=== PATIENT | female | born 1945 | race Caucasian/White ===

== ENCOUNTER 2019-12-03 09:46 | Inpatient (IN) ==
[2019-12-03 10:18] LABS: BASO# 0.06 X1000 (0.0-0.2); BASO% 0.7 % (0.0-0.8); EOS# 0.16 X1000 (0.0-0.7); EOS% 1.8 % (0.0-10.0); HEMATOCRIT 40.6 % (37.0-47.0); HEMOGLOBIN 13.1 g/dL (12.0-16.0); IMM GRAN# 0.02 X1000 (0.0-0.04); IMM GRAN% 0.2 % (0.0-0.5); LYMPH# 1.79 X1000 (1.2-3.4); LYMPH% 19.6 % (20.5-51.1); MCH 31.2 PG (27-31); MCHC 32.3 g/dL (33-37); MCV 96.7 FL (81-99); MONO# 0.84 X1000 (0.11-0.59); MONO% 9.2 % (1.7-9.3); NEUT# 6.26 X1000 (1.4-6.5); NEUT% 68.5 % (42.2-75.2); PLT 255 X1000 (130-400); RDW 13.3 % (11.5-14.5); WBC 9.13 X1000 (4.8-10.8)
[2019-12-03 10:27] LABS: INR 1.16
[2019-12-03 10:28] LABS: PTT 34.2 Seconds (22.3-41.8)
[2019-12-03 10:35] LABS: ALB/GLOB RATIO 1.7; ALBUMIN 3.8 g/dL (3.5-5.0); CALCIUM 8.8 mg/dL (8.8-10.2); CREATININE 1.1 mg/dL (0.5-0.9); POTASSIUM 4.4 mmol/L (3.5-5.1); TOTAL BILIRUBIN 0.43 mg/dL (0.20-1.00); TOTAL PROTEIN 6.1 g/dL (6.3-8.3)
--- NOTE | 2019-12-03 10:45 | Diag Imaging Result Doc PS360 ---
EXAM: CHEST-1 VIEW HISTORY: news screening TECHNIQUE: Single view COMPARISON: 07/24/2019 FINDINGS: The lungs are well expanded. The right hemidiaphragm is elevated similar to the prior exam. The heart is mildly prominent. The vessels are not distended. There are no infiltrates. No effusion identified. IMPRESSION: Stable chest Electronically signed by Issac Velasquez 12/03/2019 10:43 AM
[2019-12-03] MEDS ORDERED: CARDIZEM IV ONE (11:01)
--- NOTE | 2019-12-03 11:13 | PROVIDER DOCUMENTATION ---
HPI-Cardiac General - General Chief Complaint: Shortness of Breath Stated Complaint: SOB Time Seen by Provider: 12/03/19 10:00 Source: patient Allergies/Adverse Reactions: Patient Allergies Allergy/AdvReac Type Severity Reaction Status Date / Time codeine Allergy NAUSEA/VOMI Verified 06/27/17 08:08 TING hydroxyzine [From Vistaril] Allergy SWELLING Verified 06/27/17 08:08 Sulfa (Sulfonamide Allergy HIVES Verified 06/27/17 08:08 Antibiotics) Home Medications: Home Medication List Medication Instructions Recorded Confirmed Last Taken Type Aspirin 81 mg PO DAILY 06/27/17 06/28/17 06/20/17 History 81 Atorvastatin Calcium [Lipitor] 40 mg PO DAILY 06/27/17 06/28/17 06/27/17 21:00 History 40 Azelastine/Fluticasone [Dymista 2 spray NS BID 06/27/17 06/28/17 06/26/17 History Nasal [place]] 2 Carvedilol [Coreg] 12.5 mg PO BID 06/27/17 06/28/17 06/28/17 08:00 History 12.5 Estradiol 0.05 mg/24 Hr Patch 1 each TD Q7D 06/27/17 06/28/17 06/21/17 History [Climara 0.05 mg/24 Hr Patch] 1 Gabapentin 300 mg PO BID 06/27/17 06/28/17 06/27/17 21:00 History 300 Gemfibrozil [Lopid] 600 mg PO BID 06/27/17 06/28/17 06/27/17 21:00 History 60 Glyburide/Metformin HCl 2 each PO QAM 06/27/17 06/28/17 06/27/17 08:00 History [Glucovance 2.5/500 mg Tablet] 2 Insulin Glargine,Hum.rec.anlog 50 unit SQ HS 06/27/17 06/28/17 06/27/17 22:00 History [Lantus Solostar] 50 Lisinopril 40 mg PO DAILY 06/27/17 06/28/17 06/27/17 08:00 History 40 Montelukast Sodium [Singulair] 10 mg PO DAILY 06/27/17 06/28/17 06/27/17 22:00 History 10 Multivitamins/Minerals [Centrum 1 each PO DAILY 06/27/17 06/28/17 06/27/17 08:00 History Silver] 1 Nifedipine [Procardia Xl] 60 mg PO DAILY 06/27/17 06/28/17 06/28/17 08:00 History 60 Pantoprazole [Protonix 40 mg PO DAILY@0700 06/27/17 06/28/17 06/27/17 08:00 History [Nonformulary]] 40 Potassium Chloride 10 meq PO DAILY 06/27/17 06/28/17 06/27/17 08:00 History 10 Prednisone 10 mg PO EVERY OTHER DAY 06/27/17 06/28/17 06/26/17 History 10 Torsemide [Demadex] 20 mg PO DAILY 06/27/17 06/28/17 06/26/17 History 20 Vitamin E 400 unit PO DAILY 06/27/17 06/28/17 06/27/17 08:00 History 400 Albuterol Sulfate [Proair 90 mcg INHALATION 4XDAY PRN PRN #1 07/24/19 Unknown Rx Digihaler] aer.pw.bas Cefditoren Pivoxil 400 mg PO BID #20 tab 07/24/19 Unknown Rx - History of Present Illness-Cardiac Nature of Presenting Problem: [id number] comes in with c/o sob with exertion that has been increasing for the past month patient states that she is unable to walk more than a few feet without having to sit and rest. Patient states she also has a pain to the left side with breathing. Patient states she was in the ER greater than 3 weeks ago and was diagnosed with bronchitis. Patient states that she does have a PMH of CHF and does have increased edema to legs. Patient is nontoxic in appearance. Location: reports: back Quality of Pain: reports: dull Severity in ED: moderate Onset/Duration: other (3 weeks) Timing: getting worse Context/Activities at Onset: reports: none Modifying Factors: improves with: nothing History of arrythmia: reports: none (patient currently in AFib RVR) Recent use of:: reports: no stimulants Nitro Today/Relief: reports: no nitro taken today Aspirin Treatment Today: reports: 81 mg x 1 (daily asa) Prior Chest Pain/Cardiac Workup: reports: cardiac cath, echocardiography, stress test Associated Symptoms: reports: back pain, fatigue, shortness of breath Similar Symptoms Previously?: No Recently Seen Here or By Another Healthcare Provider: No Review of Systems - Adult - REVIEW OF SYSTEMS - ADULT Constitutional: reports: no symptoms reported. denies: chills, fever Eyes: reports: no symptoms reported Ears, Nose, Mouth & Throat: reports: no symptoms reported. denies: epistaxis, sinus problem Cardiovascular: reports: irregular heart rate. denies: chest pain Respiratory: reports: shortness of breath Gastrointestinal: reports: no symptoms reported. denies: abdominal pain, diarrhea, nausea, vomiting Genitourinary: reports: flank pain. denies: dysuria Musculoskeletal: reports: no symptoms reported Integumentary: reports: no symptoms reported Neurological: reports: no symptoms reported Psychiatric: reports: no symptoms reported Endocrine: reports: no symptoms reported Hematologic/Lymphatic: reports: no symptoms reported Allergic/Immunologic: reports: no symptoms reported All Other Systems: Reviewed and Negative Past History - Adult - PAST MEDICAL HISTORY-ADULT Review of Records: reports: Old Records Reviewed, Nursing Assessment Review, Medications Reviewed, Social history reviewed & non-contributory. Major Childhood Illnesses: reports: denies history Cardiovascular: reports: CAD, CHF, HTN Respiratory: reports: denies history, COPD Gastrointestinal: reports: GERD Obstetrical/Gynecological: reports: denies history Genitourinary: reports: chronic UTI's Musculoskeletal: reports: denies history Neurological: reports: denies history Endocrine/Immune: reports: Diabetes Diabetes Type: Type 2 Other Conditions: reports: denies history - IMMUNIZATION STATUS Childhood Immunizations: See Nurse Assessment Flu Vaccine: See Nurse Assessment - FAMILY HISTORY Family History: reviewed, not pertinent - SOCIAL HISTORY Smoking: denies Substance Use: denies Living Situation: family Physical Exam-General - PHYSICAL EXAM-ADULT Initial Vital Signs Reviewed: Yes - CONSTITUTIONAL General Appearance: appears well, alert, no apparent distress - EYES Eyes: PERRL/EOMI, pink conjunctivae - HEAD, EARS, NOSE, MOUTH & THROAT HENMT: normocephalic/atraumatic, moist mucous membranes, normal ENT inspection - NECK Neck: non-tender, full range of motion, supple - RESPIRATORY Respiratory: chest non-tender, lungs clear, normal breath sounds, no pleuratic chest pain, no respiratory distress, no accessory muscle use - CARDIOVASCULAR Cardiovascular: normal peripheral pulses, no gallop, no JVD, irregularly irregular - GASTROINTESTINAL (ABDOMEN) Abdominal Exam: normal bowel sounds, non tender, soft - LYMPHATIC Lymphatic: no adenopathy - MUSCULOSKELETAL Back Exam: normal inspection, no CVA tenderness Extremity: normal range of motion, normal gait, pedal edema Peripheral Pulses: radial (R): 2+, radial (L): 2+, dorsalis-pedis (R): 2+, dorsalis-pedis (L): 2+ - SKIN Integumentary: normal color, normal turgor, warm/dry - NEUROLOGIC Neurologic: grossly normal - PSYCHIATRIC Psych/Mental Status: normal mood/affect, normal thought content, oriented x 3 - HEART Score HEART Score: History: Slightly Suspicious HEART Score: ECG: Normal HEART Score: Age: > or = 65 Years HEART Score: Risk Factors for Atherosclerotic Disease: > or = 3 Risk Factors or History of Atherosclerotic Disease HEART Score: Troponin: < or = Normal Limit Total HEART Score:: 4 Progress - PLAN OF CARE/RESULTS Progress/Plan/Lab Results: Vital Signs - 8 hr 12/03/19 09:51 12/03/19 11:53 Temperature 97.5 F L Pulse Rate 137 H 117 H Respiratory Rate 20 23 Blood Pressure 171/87 131/99 O2 Sat by Pulse Oximetry 98 95 Laboratory Results - last 24 hr 12/03/19 12/03/19 12/03/19 10:05 10:05 10:05 WBC RBC Hgb Hct MCV MCH MCHC RDW Std Deviation Plt Count MPV Immature Gran % (Auto) Neut % (Auto) Lymph % (Auto) Moody % (Auto) Eos % (Auto) Baso % (Auto) Immature Gran # (Auto) Neut # (Auto) Lymph # (Auto) Moody # (Auto) Eos # (Auto) Baso # (Auto) PT INR PTT (Actin FS) Sodium 140 Potassium 4.4 Chloride 103 Carbon Dioxide 24 L Anion Gap 13 BUN 20 Creatinine 1.1 H Estimated GFR/1.73 m2 48 BUN/Creatinine Ratio 18 Glucose 266 H Calculated Osmolality 291 Calcium 8.8 Total Bilirubin 0.43 AST 14 ALT 10 Alkaline Phosphatase 94 Creatine Kinase 69 Troponin T High Sens 20 H Total Protein 6.1 L Albumin 3.8 Globulin 2.3 Albumin/Globulin Ratio 1.7 Plasma Lactate 1.2 Urine Source Urine Color Urine Turbidity Urine pH Ur Specific [place] Urine Protein Ur Glucose (Stick) Ur Ketones (Stick) Urine Blood Urine Nitrite Urine Bilirubin Urobilinogen Dipstick Urine Leukocytes Urine WBC (Auto) Urine RBC (Auto) U Epithel Cells (Auto) Urine Bacteria (Auto) 12/03/19 12/03/19 12/03/19 10:05 10:05 10:26 WBC 9.13 RBC 4.20 Hgb 13.1 Hct 40.6 MCV 96.7 MCH 31.2 H MCHC 32.3 L RDW Std Deviation 13.3 Plt Count 255 MPV 12.0 H Immature Gran % (Auto) 0.2 Neut % (Auto) 68.5 Lymph % (Auto) 19.6 L Moody % (Auto) 9.2 Eos % (Auto) 1.8 Baso % (Auto) 0.7 Immature Gran # (Auto) 0.02 Neut # (Auto) 6.26 Lymph # (Auto) 1.79 Moody # (Auto) 0.84 H Eos # (Auto) 0.16 Baso # (Auto) 0.06 PT 15.0 INR 1.16 PTT (Actin FS) 34.2 Sodium Potassium Chloride Carbon Dioxide Anion Gap BUN Creatinine Estimated GFR/1.73 m2 BUN/Creatinine Ratio Glucose Calculated Osmolality Calcium Total Bilirubin AST ALT Alkaline Phosphatase Creatine Kinase Troponin T High Sens Total Protein Albumin Globulin Albumin/Globulin Ratio Plasma Lactate Urine Source CATH Urine Color YELLOW Urine Turbidity CLEAR Urine pH 6.0 Ur Specific [place] 1.017 Urine Protein 30 A Ur Glucose (Stick) 500 A Ur Ketones (Stick) NEGATIVE Urine Blood NEGATIVE Urine Nitrite NEGATIVE Urine Bilirubin NEGATIVE Urobilinogen Dipstick NORMAL Urine Leukocytes TRACE A Urine WBC (Auto) 10-20 A Urine RBC (Auto) <10 U Epithel Cells (Auto) <10 Urine Bacteria (Auto) NEGATIVE Orders Category Date Time Status Cardiac Monitoring NOW Care 12/03/19 09:57 Active IV Insertion NOW Care 12/03/19 09:57 Completed NEWS Score >or=5:Order NEWS Bundle S.O. NOW Care 12/03/19 09:56 Active Notify Provider of NEWS Score NOW Care 12/03/19 09:57 Active Diabetic Diet Diet 12/03/19 12:34 Active CHEST-1 VIEW [RAD] Stat Exams 12/03/19 09:57 Completed BLOOD CULTURE [BLDCUL] Stat Lab 12/03/19 10:30 Results BNP [PRO B-NATRIURETIC PEPTIDE] Stat Lab 12/03/19 10:05 Received CBC WITH DIFF [HEME] Stat Lab 12/03/19 10:05 Completed CK PROFILE [SP CHEM] Stat Lab 12/03/19 10:05 Completed COMPREHENSIVE METABOLIC PANEL [CHEM] Stat Lab 12/03/19 10:05 Completed LACTATE, PLASMA [CHEM] Q3H Lab 12/03/19 10:05 Completed PROTIME WITH INR [COAG] Stat Lab 12/03/19 10:05 Completed PTT [COAG] Stat Lab 12/03/19 10:05 Completed TROPONIN T HIGH SENSITIVITY Stat Lab 12/03/19 10:05 Completed URINALYSIS W/POSS RFLX CULT [URINALYSIS] Stat Lab 12/03/19 10:26 Completed Diltiazem 100 mg/Ns [Cardizem 100 mg/Ns] Med 12/03/19 11:15 Active 100 mg in 100 ml IV As Directed mls/hr Diltiazem [Cardizem] Med 12/03/19 11:01 Discontinued 10 mg IV NOW ONE O2 Per Protocol Stat Oth 12/03/19 09:57 Active Patient agrees with POC rendered today. Result Diagrams: 12/03/19 10:05 12/03/19 10:05 - REASSESSMENT Reassessment #1 Time Reassessed: 12:00 Status: improving (patient on cardizem gtt HR 97 afib) - EKG 1 Time of EKG reading by physician:: 10:55 EKG Read and Signed by:: Alton Rocha EKG Interpretation (*Must complete 3 of following elements*): Abnormal Rate: 121 Rhythm: Afib RVR QRS: other (Septal infarct) - XRAY 1 XRAY Study: Chest Impression: See EMR Report (FINDINGS: The lungs are well expanded. The right hemidiaphragm is elevated similar to the prior exam. The heart is mildly prominent. The vessels are not distended. There are no infiltrates. No effusion identified. IMPRESSION: Stable chest Electronically signed by Issac Velasquez 12/03/2019 10:43 AM) - CONSULTS/PCP/HOSPITALIST Notification #1 *Consult/PCP/Hospitalist*: Fozia Luz [employer] for hospitalist. Time Discussed: 12:56 Consult Disposition: Will see in ED, Admit Departure - Departure Date of Disposition Decision: 12/03/19 Time of Disposition Decision: 12:56 DIAGNOSIS: Atrial fibrillation with RVR Dyspnea Qualifiers: Dyspnea type: unspecified Qualified Code(s): R06.00 - Dyspnea, unspecified CHF (congestive heart failure) Qualifiers: Heart failure type: unspecified Heart failure chronicity: unspecified Qualified Code(s): I50.9 - Heart failure, unspecified Disposition: ADMITTED INPATIENT 09 Certified Medical Emergency: Emergent Condition: Fair Referrals and Follow-Ups: Severo Lynch MD [Primary Care Provider] - - Critical Care Note This patient required my direct & personal management of CC.: Yes Total Time (mins): 37 Critical Care Statement: This patient required my direct personal management to treat or rule out processes, the absence of which, could potentiallly result in sudden, clinically significant life or limb threatening deterioration. Attestation - Physician/ GAUTAM Attestation Patient care was provided by Advanced Practice Provider:: Yes Advanced Practice Provider:: Carolyn Ibanez Advanced Practice Provider documentation review:: The Mid-level provider documentation, treatment plan and medical decision making was reviewed by the physician who agrees with all treatment and medical decision making by the MLP. The physician spent face to face time with patient:: Yes Advanced Practice Provider documentation review:: Supervising physician onsite and consulted in the evaluation and care of this patient. The physician did have a face to face encounter with the patient.
[2019-12-03] MEDS: CARDIZEM 100 MG/NS 100 MG/100 ML IVPB IV SCH ×2 (11:48→19:41)
[2019-12-03 12:20] LABS: URINE SOURCE CATH
[2019-12-03 12:24] LABS: BILIRUBIN URINE NEGATIVE (NEGATIVE); BLOOD URINE NEGATIVE (NEGATIVE); COLOR YELLOW; GLUCOSE URINE 500 mg/dL (NEGATIVE); KETONE URINE NEGATIVE (NEGATIVE); LEUKOCYTES URINE TRACE (NEGATIVE); NITRITE URINE NEGATIVE (NEGATIVE); PROTEIN URINE 30 mg/dL (NEGATIVE); SP GRAVITY URINE 1.017; TURBIDITY URINE CLEAR (CLEAR); UROBILINOGEN URINE NORMAL (NORMAL)
[2019-12-03 12:26] LABS: UR EPITHELIAL CELLS <10 /HPF (<10); URINE BACTERIA NEGATIVE /HPF; URINE RBC <10 /HPF (<10)
[2019-12-03] MEDS ORDERED: ZOFRAN IV PRN (14:14)
[2019-12-03] MEDS ORDERED: LASIX IV ONE (14:24)
--- NOTE | 2019-12-03 14:30 | EKG Report ---
Test Performed on : 12/03/2019 10:55:27 AM Test Reason : SOB Blood Pressure : / mmHG Vent. Rate : 121 BPM Atrial Rate : 138 BPM P-R Int : 000 ms QRS Dur : 088 ms QT Int : 308 ms P-R-T Axes : 000 011 020 degrees QTc Int : 437 ms Atrial fibrillation. with rapid ventricular response. Low voltage QRS Septal infarct , age undetermined Abnormal ECG No previous ECGs available Unconfirmed Result
[2019-12-03] MEDS ORDERED: LOVENOX SUBQ SCH (15:45)
--- NOTE | 2019-12-03 16:34 | HISTORY AND PHYSICAL ---
ADDENDUM: The patient was seen and examined by me [id number]. All the laboratory, vital signs, and images were reviewed. The patient presented to the emergency department with the chief complaint of shortness of breath, especially with physical activity, that has been getting worse for the past month. Chest x-ray showed some mild cardiomegaly but no infiltrates. I do not have a previous echocardiogram and I will request one. EKG showed atrial fibrillation with rapid ventricular response. She has been placed on a Cardizem drip and she has been transferred to the PVC unit. On the other hand, her proBNP is elevated at 2010 and TSH is also elevated at 12.5 and actually has been elevated before at 5.2 and 8.2 in 2016 and 2012 respectively. I will go ahead and order at a new TSH and also a T4 because probably this patient needs to be on thyroid medication due to hypothyroidism. I already discussed this with the patient. We will recheck the CBC and CMP in the morning. We will continue checking her troponins. Also, I will put this patient on Lovenox twice a day. She does have lower extremity edema. Apparently, she takes torsemide at home but we need to reconcile her medications. She received a dose of Lasix in the emergency department, so we will monitor for now. Once we have the medications reconciled, we will check on that. Again, she has been placed on a diltiazem drip and Lovenox twice a day. I agree with the rest of the nurse practitioner's assessment and plan. cc: Bradley Galvez MD
[2019-12-03] MEDS: HUMALOG SUBQ SCH ×2 (16:44→20:09)
[2019-12-03 17:16] LABS: ALLEN TEST YES; BLOOD TYPE ARTERIAL; HCO3-(ACT) 24.1 mmoll (20.0-26.0); METHB 0.9 % (0.0-1.5); O2(CT) 18.8 mL/dL (15.0-23.0); O2HB 94.2 % (95.0-99.0); PCO2(98.6) 33 mmHg (35-45); PO2(98.6) 69 mmHg (60-100); SAMPLE BLOOD; SAO2 97.2 % (95.0-100.0); THB 14.2 g/dL (11.5-17.4); pH(98.6) 7.44 (7.35-7.45)
[2019-12-03 17:17] LABS: MODALITY ROOM AIR
--- NOTE | 2019-12-03 18:14 | CARDIOLOGY CONSULTATION ---
DATE: 12/03/2019 CONSULTATION REQUESTED BY: The hospitalist service. REASON FOR THE CONSULTATION: Patient with atrial fibrillation, dyspnea, CHF. HISTORY: Mrs. Hurst is a pleasant 74-year-old woman, female, patient of Dr. Nando Tapia and Severo Lynch, who presented to the emergency room today complaining of at least 3 weeks of progressive exertional dyspnea associated with subtle swelling of her ankles. This symptom started gradually and she noticed it because it became more difficult for her to reach her mailbox from her home back and forth. Upon presentation, they did a chest x-ray that shows that the lungs are well- expanded. Vessels are not distended. There are no infiltrates. She is afebrile. She denies having any fever. She has not been coughing. No expectoration. She denies having chest pain, although she admits that from time to time she gets "abdominal pain" that feels like an intense tightness in the abdomen. She attributes that to some sort of acid reflux history of. Upon presentation, they have given her some furosemide and diltiazem and she has been admitted to the hospital for further management. Her initial electrocardiogram done at 10:55 a.m. shows atrial fibrillation with a heart rate of 121 beats per minute with a questionable septal scar and low voltage. The patient at this time is sitting upright. She is comfortable. She says that the shortness of breath is a little less intense. Of note, her pro BNP level on admission is 2010 pg/mL and that is the highest that she has ever had measured in the past. Previously back in 2016 they checked it and it was 342 and in December 2015 was 193 pg/mL. PAST HISTORY: Significant for hypertension for a number of years, diabetes mellitus type 2. She has a history of sleep apnea syndrome and she has been unable to wear the CPAP device. She is morbidly obese. Her body mass index today is estimated at 49.8, weight is 281 pounds. The last time she saw Dr. Tapia at his office on April 2019 her weight was recorded at 263 pounds with a BMI of 46.7. The patient has had some atrial arrhythmia in the past and she has been kept on a low dose of Coreg for that. Reportedly, she has been diagnosed with congestive heart failure with preserved ejection fraction. Dr. Tapia did a PET myocardial perfusion scan on her back in 2016 that came back normal. The patient has a history of hiatal hernia/acid reflux, history of asthma and history of shingles. SURGICAL HISTORY: She has had previous cholecystectomy, hysterectomy, oophorectomy, appendectomy, breast biopsy. 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 She is . She has 2 sons grown up. She is not a drinker nor a smoker. FAMILY HISTORY: Very positive for coronary heart disease on mother and 2 brothers. HOME MEDICATIONS: Listed at the time of this admission included albuterol inhaler, aspirin, atorvastatin 40 mg at bedtime, carvedilol 12.5 twice a day, estradiol patch 0.05 mg/24 hour every 7 days, gabapentin 300 twice a day, gemfibrozil 600 mg twice a day, glyburide metformin 2.5/500 mg at bedtime and she takes 2 in the morning, insulin glargine 50 units at bedtime, lisinopril 40 mg daily, montelukast 10 mg daily, nifedipine 60 mg daily, potassium 10 mEq daily, torsemide 20 mg daily and vitamin E 400 units daily. ALLERGIES: Positive to codeine, hydroxyzine and sulfa drugs. REVIEW OF SYSTEMS: She is chronically dyspneic, lately has become worse. She never had chest pains or angina pectoris or a diagnosis of such condition. We do not have any previous CT scan of the chest noted. No other positives. She has had a previous endoscopy by Dr. Raymundo. PHYSICAL EXAMINATION: Vital signs: Blood pressure is 151/129, temperature 98 degrees, pulse 120. She is awake, alert, oriented, in no distress. She is sitting upright. HEENT: Unremarkable. Chest: Clear to auscultation and percussion. Heart: Sounds are distant. Irregularly irregular. Abdomen: Morbidly obese. No hepatomegaly noted. Extremities: Showed 2+ edema bilaterally. Neurologic: Nonfocal. Moves 4 extremities. Skin: Shows no rash. Psychiatric: She is in normal mood, not agitated. She seems to be intelligent and answers appropriately. Her insight is also normal. BLOOD WORK: White cell count 9130, hemoglobin 13.1, hematocrit 40.6%. PT/INR normal. Sodium 140, potassium 4.4, BUN 20, creatinine 1.1, glucose 266. TSH 12.53 uIU per mL. IMPRESSION: 1. Patient who presents with increasing dyspnea, probably diastolic heart failure secondary to the development of atrial fibrillation with rapid response. 2. Morbid obesity, body mass index almost close to 50. 3. Sleep apnea syndrome, untreated. 4. Chronic hypertension. 5. Hyperlipidemia. 6. Reported history of "asthma." 7. Reported history of congestive heart failure, diastolic with preserved ejection fraction. RECOMMENDATION: At this time, we will change her medications around. We are going to stop Procardia, put her on Cardizem. Continue low-dose beta abelardo. We will keep her on some sort of diuretic probably spironolactone. We will consider anticoagulation with Eliquis and we will consider JACE cardioversion depending on her clinical course. The patient really needs to pursue management with a sleep clinic because her sleep apnea syndrome probably has a lot to do with the development of atrial fibrillation. We will follow her during this admission. Upon discharge, she will return to the care of Dr. Nando Tapia who knows her very well. cc: Ashvin Garcia MD [facility]
--- NOTE | 2019-12-03 19:38 | HISTORY AND PHYSICAL ---
CHIEF COMPLAINT: Shortness of breath and increasing lower extremity edema. HPI: This is a 74-year-old female with a history of hypertension, diabetes mellitus type 2 and obstructive sleep apnea with noncompliance with medications. She presented to the emergency room complaining of 3 weeks of progressive exertional dyspnea with increasing swelling to her lower extremities. She stated that over this time she has noticed that it took longer to do her activities of daily living due to having to slow down because of the shortness of breath. She stated that during the last 24 to 48 hours she had some left-sided pain that was present with cough and deep breath. She has had pleurisy in the past and she states this felt like that therefore she presented for evaluation. PAST MEDICAL HISTORY: 1. Hypertension. 2. Diabetes mellitus type 2. 3. Sleep apnea syndrome with noncompliance wearing a CPAP device. She states that she attempted to wear this during the sleep study was unable so she never followed up. This was greater than 10 years ago. 4. Morbid obesity. 5. Congestive heart failure. 6. Hiatal hernia with acid reflux. PAST SURGICAL HISTORY: Cholecystectomy, hysterectomy, oophorectomy, appendectomy and breast biopsy. SOCIAL HISTORY: She is . She has children that live close by but that are active in her care. She denies any alcohol or tobacco use. 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 FAMILY HISTORY: Positive for coronary artery disease and all her siblings have hypothyroid. HOME MEDICATIONS: A list will be obtained by the nursing staff and once verified we will review and restart as appropriate. REVIEW OF SYSTEMS: Discussed with patient with pertinent positives stated in the HPI. She denied any syncope or dizziness, any palpitations, a productive cough, any fevers or chills, night sweats, recent weight loss, any nausea, vomiting, diarrhea, constipation, black or bloody vomitus or stools, any hematuria, dysuria, frequency, urgency. PHYSICAL EXAMINATION: GENERAL: This is a 74-year-old female who is sitting up on the side of the bed eating in no distress. VITAL SIGNS: Blood pressure is 131/99 with a heart rate that fluctuates between 106 and 124, respirations are 20, temperature 97.6 degrees oral with O2 saturations 95 to 98%. HEENT: Pupils equal, round, react to light. EOMs are intact sclerae anicteric. Head is normocephalic, atraumatic. Mucous membranes are moist. NECK: Supple with trachea midline. No JVD. CARDIOVASCULAR: Irregularly irregular rate and rhythm. S1 and S2 appreciated. No murmur. PULMONARY: Breath sounds are clear with no increased work of breathing noted. Chest rises falls symmetric respiration. GASTROINTESTINAL: Abdomen large, soft, nontender, nondistended with bowel sounds in all 4 quadrants. EXTREMITIES: She has 2+ pitting edema from about midthigh down bilateral. SKIN: Warm and dry. NEUROLOGIC: She is alert, oriented x3. LABS: WBC is 9.1 with hemoglobin 13.1, hematocrit 40.6 and platelets of 255,000. Sodium 140, potassium 4.4, BUN 20, creatinine 1.1 with a glucose of 266. Troponin was 20. Chest x-ray revealed stable chest, lungs are well expanded. Right hemidiaphragm is elevated similar to July 2019. Heart is mildly prominent. Vessels are not distended. There are no infiltrates, no effusion identified. Blood cultures x2 are pending. Urine culture is pending. ASSESSMENT AND PLAN: 1. Increasing dyspnea. 2. Atrial fibrillation with rapid ventricular response. 3. Morbid obesity with a body mass index 49.8. 4. Sleep apnea syndrome, untreated due to patient's noncompliance. 5. Hypertension. 6. Hyperlipidemia. 7. History of congestive heart failure with preserved ejection fraction. PLAN: 1. The patient will be admitted, placed on telemetry. 2. Consult Cardiology. 3. Update and confirm her home medications and once confirmed we will review and restart as appropriate. 4. Supplemental oxygen as needed. 5. Echocardiogram. 6. Check a TSH. 7. Check CBC and CMP in the morning. 8. Pattern blood glucose with sliding scale insulin. 9. Further treatments pending hospital course. Dictated by TAMERA Larson for Bradley Galvez MD cc: TAMERA Larson MD
[2019-12-03] MEDS: CARDIZEM PO SCH (19:51)
[2019-12-03] MEDS: ALDACTONE PO SCH (20:08)
[2019-12-03] MEDS: LIPITOR PO SCH (20:08)
[2019-12-03] MEDS: ASTELIN NASAL SPRAY NAS SCH (20:08)
[2019-12-03] MEDS: LOPID PO SCH (20:08)
[2019-12-03] MEDS: COREG PO SCH (20:08)
[2019-12-03] MEDS: ELIQUIS PO SCH (20:08)
[2019-12-03] MEDS: FLONASE NAS SCH (20:08)
[2019-12-03] MEDS: MONISTAT-7 VAG CREAM VAG SCH (20:10)
[2019-12-04] MEDS: CARDIZEM PO SCH ×4 (02:47→20:15)
[2019-12-04 05:57] LABS: HEMATOCRIT 36.9 % (37.0-47.0); HEMOGLOBIN 12.2 g/dL (12.0-16.0); MCH 32.2 PG (27-31); MCHC 33.1 g/dL (33-37); MCV 97.4 FL (81-99); MPV 12.2 FL (7.4-10.4); RBC 3.79 XMIL (4.2-5.4); RDW 13.4 % (11.5-14.5); WBC 7.88 X1000 (4.8-10.8)
[2019-12-04] MEDS: HUMALOG SUBQ SCH ×4 (06:07→20:15)
[2019-12-04 06:34] LABS: ALB/GLOB RATIO 1.3; ALBUMIN 3.4 g/dL (3.5-5.0); CALCIUM 8.7 mg/dL (8.8-10.2); CREATININE 1.2 mg/dL (0.5-0.9); POTASSIUM 3.7 mmol/L (3.5-5.1); TOTAL BILIRUBIN 0.46 mg/dL (0.20-1.00); TOTAL PROTEIN 6.1 g/dL (6.3-8.3)
[2019-12-04 06:55] LABS: FREE T4 0.92 ng/dL (0.93-1.70)
[2019-12-04 07:00] LABS: TSH 7.26 uIUmL (0.27-4.20)
--- NOTE | 2019-12-04 08:13 | EKG Report ---
Test Performed on : 12/04/2019 06:48:13 AM Test Reason : atrial fibrillation Blood Pressure : / mmHG Vent. Rate : 078 BPM Atrial Rate : 267 BPM P-R Int : 000 ms QRS Dur : 088 ms QT Int : 414 ms P-R-T Axes : 000 052 -07 degrees QTc Int : 471 ms Atrial fibrillation. Low voltage QRS Nonspecific T wave abnormality Prolonged QT Abnormal ECG When compared with ECG of 03-DEC-2019 10:55, (Unconfirmed) Vent. rate has decreased BY 43 BPM Criteria for Septal infarct are no longer present Confirmed by Medina LOPEZ, Salinas Lopez ([id number]) on 12/04/2019 9:25:37 AM
[2019-12-04] MEDS: FLONASE NAS SCH ×2 (08:26→20:14)
[2019-12-04] MEDS: VITAMIN E PO SCH (08:26)
[2019-12-04] MEDS: SINGULAIR PO SCH (08:26)
[2019-12-04] MEDS: ASTELIN NASAL SPRAY NAS SCH ×2 (08:26→20:14)
[2019-12-04] MEDS: COREG PO SCH ×2 (08:26→20:15)
[2019-12-04] MEDS: ELIQUIS PO SCH ×2 (08:26→20:15)
[2019-12-04] MEDS: ALDACTONE PO SCH ×2 (08:26→20:15)
[2019-12-04] MEDS: ASPIRIN PO SCH (08:26)
[2019-12-04] MEDS: CENTRUM SILVER PO SCH (08:26)
[2019-12-04] MEDS: LOPID PO SCH ×2 (08:26→20:15)
--- NOTE | 2019-12-04 08:29 | CARDIOLOGY PROGRESS NOTE ---
DATE: 12/04/2019 CHIEF COMPLAINT: Shortness of breath, irregular heartbeat. SUBJECTIVE: Mrs. Hurst had a pleasant night. She is not having any pain this morning or any significant dyspnea. She is in no distress. OBJECTIVE: Vital signs: Blood pressure is 130/50, temperature 97.6 degrees, pulse 83, respirations 24. A 12-lead EKG this morning shows atrial fibrillation with controlled rate, low voltage. General: She is awake, sitting upright, in no distress. HEENT: Normal. Chest: Sounds clear to auscultation and percussion. Heart: Sounds are irregularly irregular, distant. I do not hear any gallop or murmur. Abdomen: Quite obese. No hepatomegaly. Extremities: Showed trace ankle edema bilaterally. Neurologic exam: Follows commands, moves all 4 extremities. BLOOD WORK: Sodium 141, potassium 3.7, BUN 20, creatinine 1.2. Her lipid panel, LDL 73, HDL 39 mg/dL, cholesterol 119, triglycerides 120. TSH is 7.26, free T4 is 0.92, free T4 is low, TSH is high. Her chest x-ray yesterday showed no infiltrates. IMPRESSION: 1. Patient who presented with clinical symptoms of congestive heart failure diastolic probably related to the development of atrial fibrillation. 2. Atrial fibrillation of uncertain duration now with controlled rate. 3. Morbid obesity. 4. Sleep apnea syndrome. 5. Hypothyroidism. 6. Hypertension. RECOMMENDATIONS: At this time, we will keep the patient on carvedilol and diltiazem. She has been started on Eliquis for stroke prevention. I put her on spironolactone. We will watch her for a day or two and then we will decide on whether or not to pursue cardioversion. The patient at this time is really back to her normal baseline clinically, she is requesting to be discharged, however, I believe that we ought to watch her for a day or two and then before discharge we should try to restore sinus rhythm. She understands that she needs to follow up with her primary care fiberline supervisor, and also obtain a followup visit with the sleep clinic. cc: Ashvin Garcia MD
--- NOTE | 2019-12-04 11:30 | PROGRESS NOTE ---
DATE: 12/04/2019 SUBJECTIVE: This patient states that she is feeling better compared to admission, she is not complaining of chest pain or shortness of breath at this moment, she is still in atrial fibrillation, but she is not on RVR. Her TSH is high, T4 is low, and she has not been on levothyroxine before, so I will go ahead and put her on treatment, likely this patient has sleep apnea as well. OBJECTIVE: Vital Signs: Temperature 97.6 degrees, pulse 83, respiratory rate 24, blood pressure 130/50, oxygen saturation 98% on room air. HEENT: Head normocephalic. No trauma. PERRLA. Neck: Supple. No JVD. No masses. Central trachea. Chest: Clear to auscultation, some crepitus at the bases, no wheezing, no rales. Cardiovascular: Irregularly irregular rate and rhythm. Abdomen: Soft, nontender, nondistended. No hepatosplenomegaly. Extremities: There is 2-3+ lower extremity edema. No clubbing. No cyanosis. Neurological Examination: The patient is awake, alert. She is oriented x3. No focal deficits. LABORATORY: WBC 7.8, hemoglobin 12.2, hematocrit 36.9, platelets 224,000. Sodium 141, potassium 3.7, chloride 103, bicarbonate 25, BUN 20, creatinine 1.2, glucose 160, calcium 8.7, AST 13, ALT 9, alkaline phosphatase 85, albumin 3.4. TSH 7.2, free T4 0.9. ASSESSMENT AND PLAN: 1. Atrial fibrillation with rapid ventricular response, now rate-controlled but she is still in atrial fibrillation, we will continue following the recommendations of Cardiology Department. Continue with same treatment for now. If she still on atrial fibrillation probably in 1 or 2 day she will be cardioverted. 2. Likely diastolic heart failure exacerbation. She received some Lasix yesterday, but the creatinine increased a little bit. Will monitor for now. She is feeling much better. 3. Morbid obesity, diet and exercise has been discussed. 4. Hypertension, stable. Continue with same management. 5. Hypothyroidism, her thyroid stimulating hormone is high and the T4 level is low. I will go ahead and start this patient on 75 mcg of levothyroxine, I talked to her and she needs to re- evaluate the numbers in 6 weeks or so with her primary care doctor, she seems to understand. 6. Likely sleep apnea, she needs to follow up with a sleep doctor as an outpatient. 7. Dyslipidemia, continue with Lipitor. cc: Bradley Galvez MD
--- NOTE | 2019-12-04 12:50 | ECHO REPORT ---
ORDER DATE: 12/04/2019 INDICATION FOR THE STUDY: Atrial fibrillation, dyspnea. FINDINGS: 1. The right atrium appears enlarged. 2. No significant tricuspid regurgitation identified. 3. The right ventricle appears to have normal systolic function but it is enlarged. 4. No significant pulmonic insufficiency. 5. Severe left atrial enlargement with a volume index of 51. 6. No mitral valve prolapse. Trace mitral regurgitation. 7. Normal LV size, end-diastolic dimension of 5.2 cm. Normal wall thicknesses with a posterior and interventricular septal wall thickness of 1.1 cm each. Normal LV systolic function. The estimated EF appears to be greater than 55%. Wall motion and EF are difficult to evaluate due to the patient's irregular and tachycardic rate. Rates are in the 90s to 120s. The patient appears to be in atrial fibrillation. 8. The aortic valve opens well. No evidence of stenosis or insufficiency. 9. The aorta appears normal in visualized segments. 10. No pericardial effusion seen. cc: MD Esthela Hathaway CRNP
[2019-12-04] MEDS: MONISTAT-7 VAG CREAM VAG SCH (20:13)
[2019-12-04] MEDS: COLACE PO SCH (20:15)
[2019-12-04] MEDS: LIPITOR PO SCH (20:15)
[2019-12-04] MEDS ORDERED: FLEET ENEMA PR ONE (22:18)
[2019-12-05] MEDS: CARDIZEM PO SCH ×4 (02:28→19:54)
[2019-12-05 06:30] LABS: CREATININE 1.4 mg/dL (0.5-0.9); MAGNESIUM 2.1 mg/dL (1.5-2.7)
[2019-12-05] MEDS: SYNTHROID PO SCH (06:30)
[2019-12-05] MEDS: HUMALOG SUBQ SCH ×4 (06:30→20:19)
--- NOTE | 2019-12-05 07:50 | EKG Report ---
Test Performed on : 12/05/2019 07:06:11 AM Test Reason : atrial fibrillation Blood Pressure : / mmHG Vent. Rate : 109 BPM Atrial Rate : 156 BPM P-R Int : 000 ms QRS Dur : 084 ms QT Int : 290 ms P-R-T Axes : 000 009 174 degrees QTc Int : 390 ms Atrial fibrillation. with rapid ventricular response. Low voltage QRS Septal infarct , age undetermined Abnormal ECG When compared with ECG of 04-DEC-2019 06:48, Septal infarct is now present QT has shortened Confirmed by Medina LOPEZ, Salinas Lopez ([id number]) on 12/05/2019 9:49:51 AM
[2019-12-05] MEDS: CENTRUM SILVER PO SCH (08:13)
[2019-12-05] MEDS: SINGULAIR PO SCH (08:13)
[2019-12-05] MEDS: LOPID PO SCH ×2 (08:13→20:20)
[2019-12-05] MEDS: ASPIRIN PO SCH (08:13)
[2019-12-05] MEDS: BETAPACE PO SCH ×2 (08:13→20:20)
[2019-12-05] MEDS: VITAMIN E PO SCH (08:13)
[2019-12-05] MEDS: ALDACTONE PO SCH ×2 (08:13→20:20)
[2019-12-05] MEDS: ELIQUIS PO SCH ×2 (08:13→20:20)
[2019-12-05] MEDS: COLACE PO SCH ×2 (08:13→20:21)
[2019-12-05] MEDS: FLONASE NAS SCH ×2 (08:16→20:19)
[2019-12-05] MEDS: ASTELIN NASAL SPRAY NAS SCH ×2 (08:16→20:19)
--- NOTE | 2019-12-05 10:55 | PROGRESS NOTE ---
DATE: 12/05/2019 SUBJECTIVE: The patient is feeling better. She is still in atrial fibrillation, rate controlled. Her creatinine seems to be getting worse and her insulin is elevated. She is tolerating p.o., so we will go ahead and restart her night insulin. She uses Lantus 50. We will continue to monitor. OBJECTIVE: Vital Signs: Temperature 97.8 degrees, pulse 108, respiratory rate 19, blood pressure 111/82, oxygen saturation 100% on room air. HEENT: Head normocephalic. No trauma. PERRLA. Neck: Supple. No JVD. No masses. Central trachea. Chest: Clear to auscultation. Some crepitus at the bases. No wheezing. No rales. Cardiovascular: Irregularly irregular rate and rhythm. Slightly tachycardic. Abdomen: Soft, nontender, nondistended. No hepatosplenomegaly. Extremities: There is 2+ lower extremity edema. No clubbing. No cyanosis. Neurological Examination: The patient is awake and alert. She is oriented x3. No focal deficits. Laboratory: Sodium 139, potassium 4, chloride 102, bicarbonate 23, BUN 21, creatinine 1.4, glucose 240, calcium 9, magnesium 2.1. ASSESSMENT AND PLAN: 1. Atrial fibrillation with rapid ventricular response, now rate controlled but she is still in atrial fibrillation. We will continue following the recommendations of cardiology department. Continue with the same treatment for now. 2. Likely diastolic heart failure exacerbation. She received some Lasix upon admission. Her creatinine increased a little bit so we will monitor for now. She is feeling better. Cardiology on board. 3. Morbid obesity. Diet and exercise have been discussed. 4. Hypertension, stable. 5. Diabetes. I have placed this patient back on her insulin. Her blood sugar is above 200. 6. Hypothyroidism. Her TSH is high and the T4 level is low. I went ahead and put this patient on some levothyroxine, about 75 mcg by mouth daily. I talked to the patient and she needs to follow this up in 6 weeks. She has never been diagnosed with hypothyroidism. 7. Likely sleep apnea. She needs to follow up with a sleep doctor as an outpatient. This can aggravate her possible diastolic dysfunction and atrial fibrillation. 8. Dyslipidemia. Continue with Lipitor. 9. Acute on chronic kidney disease. We will monitor for now. Her creatinine between 2019 and 2017 has been around 1 to 1.1. Now, it has been between 1 to 1.4. We will monitor. cc: Bradley Galvez MD
--- NOTE | 2019-12-05 11:13 | CARDIOLOGY PROGRESS NOTE ---
DATE: 12/05/2019 CHIEF COMPLAINT: Shortness of breath, irregular heartbeat. SUBJECTIVE: Mrs. Hurst remains in atrial fibrillation. Heart rate fluctuates anywhere from the low 60s to the low 100s. She denies having chest pain. She is sitting upright eating her breakfast. OBJECTIVE: Vital signs: Temperature 97.6 degrees, pulse 108, respirations 19, blood pressure 111/82. General: She is obese, alert, in no distress. HEENT: Unremarkable. Chest: Sounds clear to auscultation and percussion. Heart: Sounds are distant, irregularly irregular. Abdomen: Obese. Extremities: Showed trace edema. Neurologic exam: Follows commands, moves all 4 extremities. BLOOD WORK: From today, sodium is 139, potassium 4.0, BUN 21, creatinine 1.4. Her echocardiogram from the showed ejection fraction of 55%. EKG today shows atrial fibrillation with possible septal scar low voltage. IMPRESSION: 1. Patient with persistent atrial fibrillation symptomatic. 2. Congestive heart failure diastolic. 3. Morbid obesity. 4. Sleep apnea syndrome. 5. Hypertension. RECOMMENDATIONS: At this time, I would suggest to try sotalol 80 mg twice a day to see if we can promote conversion to sinus rhythm. She is already on anticoagulant Eliquis. We will continue diltiazem. If she does not convert spontaneously by tomorrow, we will pursue transesophageal echocardiogram and cardioversion. I have explained to the patient the rationale for this, she is in agreement. She understands that she really needs to pursue therapy for sleep apnea upon discharge. We will see how she does tomorrow. cc: Ashvin Garcia MD [facility]
[2019-12-05] MEDS: MONISTAT-7 VAG CREAM VAG SCH ×2 (19:52→20:21)
[2019-12-05] MEDS: LIPITOR PO SCH (20:19)
[2019-12-05] MEDS: LANTUS INSULIN SUBQ SCH (20:20)
[2019-12-05] MEDS: MIRALAX PO SCH (20:21)
[2019-12-06] MEDS: CARDIZEM PO SCH ×4 (01:46→20:32)
[2019-12-06] MEDS: HUMALOG SUBQ SCH ×4 (06:13→20:31)
[2019-12-06 06:21] LABS: CALCIUM 9.1 mg/dL (8.8-10.2); CREATININE 1.1 mg/dL (0.5-0.9); MAGNESIUM 2.1 mg/dL (1.5-2.7)
[2019-12-06] MEDS: SYNTHROID PO SCH (07:35)
[2019-12-06] MEDS: ELIQUIS PO SCH ×3 (07:35→20:32)
[2019-12-06] MEDS: ALDACTONE PO SCH ×3 (07:35→20:32)
[2019-12-06] MEDS: BETAPACE PO SCH ×3 (07:35→20:32)
[2019-12-06] MEDS: ASTELIN NASAL SPRAY NAS SCH ×3 (07:36→20:30)
[2019-12-06] MEDS: FLONASE NAS SCH ×3 (07:36→20:31)
--- NOTE | 2019-12-06 07:47 | EKG Report ---
Test Performed on : 12/06/2019 07:03:55 AM Test Reason : atrial fibrillation Blood Pressure : / mmHG Vent. Rate : 118 BPM Atrial Rate : 159 BPM P-R Int : 000 ms QRS Dur : 082 ms QT Int : 274 ms P-R-T Axes : 000 002 202 degrees QTc Int : 384 ms Atrial fibrillation. with rapid ventricular response. Low voltage QRS Cannot rule out Anterior infarct (cited on or before 03-DEC-2019) Abnormal ECG When compared with ECG of 05-DEC-2019 07:06, Questionable change in initial forces of Anteroseptal leads Confirmed by Medina LOPEZ, Salinas Lopez ([id number]) on 12/06/2019 9:25:22 AM
[2019-12-06] MEDS ORDERED: XYLOCAINE 2% VISCOUS ONE (09:01)
[2019-12-06] MEDS ORDERED: DIPRIVAN 1% ONE (11:32)
[2019-12-06] MEDS ORDERED: XYLOCAINE-MPF 1% 5 ML ONE (11:33)
[2019-12-06] MEDS ORDERED: CLAVE TWINSITE 32 IN 11959 ONE (11:43)
[2019-12-06] MEDS ORDERED: ANESTHESIA PB SET 88 IN 5742 ONE (11:43)
[2019-12-06] MEDS ORDERED: NS 500 ML ONE (11:43)
[2019-12-06] MEDS: LOPID PO SCH ×2 (12:45→20:32)
--- NOTE | 2019-12-06 13:05 | EKG Report ---
Test Performed on : 12/06/2019 12:52:37 PM Test Reason : post cardioversion Blood Pressure : / mmHG Vent. Rate : 062 BPM Atrial Rate : 062 BPM P-R Int : 224 ms QRS Dur : 082 ms QT Int : 438 ms P-R-T Axes : 060 017 044 degrees QTc Int : 444 ms Sinus rhythm. with 1st degree AV block. with premature atrial complexes. Low voltage QRS Cannot rule out Anterior infarct (cited on or before 03-DEC-2019) Abnormal ECG When compared with ECG of 06-DEC-2019 07:03, Sinus rhythm. has replaced Atrial fibrillation. Vent. rate has decreased BY 56 BPM Nonspecific T wave abnormality, improved in Inferior leads Nonspecific T wave abnormality, improved in Lateral leads Confirmed by Medina LOPEZ, Salinas Lopez ([id number]) on 12/09/2019 9:24:39 AM
--- NOTE | 2019-12-06 13:11 | PROGRESS NOTE ---
DATE: 12/06/2019 SUBJECTIVE: The patient seems to be stable compared with yesterday. Vital signs are stable as well as laboratory. She is still in atrial fibrillation. Likely she will have JACE cardioversion today. She is n.p.o. OBJECTIVE: Vital signs: Temperature 97.9 degrees, pulse 60, respiratory rate 24, blood pressure 137/69, oxygen saturation 98 on room air. HEENT: Head normocephalic, no trauma. PERRLA. Neck: Supple. No JVD. No masses. Central trachea. Chest: Clear to auscultation. Some crepitus at the bases. No wheezing. No rales. Cardiovascular: Irregularly irregular rate and rhythm. Abdomen: Soft, nontender, nondistended. No hepatosplenomegaly. Extremities: 2+ lower extremity edema. No clubbing. No cyanosis. Neurological: The patient is awake, alert. She is oriented x3. No focal deficit but weakness. LABORATORY DATA: Sodium 140, potassium 4, chloride 103, bicarbonate 26, BUN 19, creatinine 1.1, glucose 153, calcium 9.1, magnesium 2.1. ASSESSMENT AND PLAN: 1. Atrial fibrillation with rapid ventricular response, now rate controlled but she is still in atrial fibrillation. The plan is to go ahead and do a transesophageal echocardiogram and cardioversion today. Cardiology Department on board. She feels better. She is n.p.o. 2. Likely diastolic heart failure exacerbation. She received some Lasix before and now the BUN and creatinine are at baseline. She is feeling better. Probably we will continue with diuretics soon. 3. Morbid obesity. Diet and exercise has been discussed. 4. Hypertension, stable. 5. Diabetes. I have placed this patient back on her home insulin and she seems to be more stable. 6. Hypothyroidism. Her TSH is high and T4 level is low. I went ahead and put this patient on some levothyroxine, about 75 mcg. I talked to the patient and she will follow up again with a TSH level in 6 weeks. She seems to understand and she will follow up with her primary care doctor. 7. Likely sleep apnea. She needs follow up with a sleep doctor as an outpatient. This can aggravate the heart failure and atrial fibrillation. 8. Dyslipidemia. Continue with Lipitor. 9. Acute on chronic kidney disease, seems to be back to her baseline. cc: Bradley Galvez MD
[2019-12-06] MEDS: COLACE PO SCH ×2 (15:21→20:31)
[2019-12-06] MEDS: VITAMIN E PO SCH (15:21)
[2019-12-06] MEDS: CENTRUM SILVER PO SCH (15:22)
[2019-12-06] MEDS: ASPIRIN PO SCH (15:22)
[2019-12-06] MEDS: SINGULAIR PO SCH (15:22)
--- NOTE | 2019-12-06 15:46 | Transesophageal Echocardiogram ---
DATE: 12/06/2019 PHYSICIAN: Ashvin Garcia MD. INDICATIONS: Persistent atrial fibrillation, cardioversion recommended. PROCEDURE: Transesophageal echocardiography DESCRIPTION: The patient was consented. She was brought to the cardiac lab in a fasting state. She received intravenous propofol under the Anesthesia services of Dr. Vaca. The patient's throat was anesthetized with Hurricaine and viscous lidocaine. Then the esophagus was intubated without difficulty. Multiple views of the cardiac structures were obtained. SUMMARY OF MAIN FINDINGS: 1. The left atrium is moderately enlarged. The left atrial appendage is free of thrombus. It shows good velocities. There is some spontaneous echo contrast. 2. The interatrial septum is intact. 3. Agitated saline was injected, there was no evidence of shunt. 4. The tricuspid valve appears to be normal. 5. The right ventricle appears to be normal. 6. Prominent epicardial fat pad was noted. Trace of pericardial effusion was noted. 7. The left ventricle shows normal function. 8. The mitral valve shows mild degree of regurgitation. 9. The aortic valve has 3 cusps, they open normally. Color flow mapping unremarkable. 10.The pulmonic valve was well-visualized, it is normal. The pulmonary veins showed normal Doppler pattern in the right and left pulmonary veins. 11.Descending thoracic aorta showed scattered plaque without any obvious ulceration or debris. SUMMARY: This transesophageal echocardiogram shows no evidence of thrombus. Cardioversion seems to be reasonable at this time. The patient tolerated the procedure well without complications. cc: Ashvin Garcia MD
--- NOTE | 2019-12-06 16:50 | CARDIOLOGY PROGRESS NOTE ---
DATE: 12/06/2019 CHIEF COMPLAINT: The patient presented with shortness of breath and irregular heartbeat. SUBJECTIVE: Ms. Hurst has no new complaints. She had difficulty sleeping last night because it is too noisy around here. She has no chest pain. No significant dyspnea now. Her rhythm remains atrial fibrillation. Heart rate at times seems to be controlled. We have initiated sotalol. EKG this morning shows atrial fibrillation, rate 118, with a nonspecific ST-T low voltage. OBJECTIVE: Vital signs: Temperature is 98 degrees, blood pressure 125/88, heart rate 108, respirations 17. Awake, obese, sitting upright, in no distress. HEENT is unremarkable. Chest sounds clear to auscultation and percussion. Heart sounds are distant, irregularly irregular. Abdomen is obese, nontender. Extremities shows trace edema. Neurologic: Follows commands. Moves all 4 extremities. DIAGNOSTIC DATA: Blood work shows sodium 140, potassium 4.0, BUN is 19, creatinine 1.1. IMPRESSION: 1. The patient presented with congestive heart failure, diastolic, probably decompensated because of development of atrial fibrillation which appears to be persistent. 2. Morbid obesity. 3. History of sleep apnea. 4. History of hypertension. RECOMMENDATIONS: At this time, I have recommended to pursue cardioversion. She is already taking Eliquis and sotalol. The benefits, risks and complications of JACE guided cardioversion were discussed. We will proceed today. cc: Ashvin Garcia MD
[2019-12-06] MEDS: LANTUS INSULIN SUBQ SCH (20:31)
[2019-12-06] MEDS: MIRALAX PO SCH (20:31)
[2019-12-06] MEDS: LIPITOR PO SCH (20:32)
[2019-12-06] MEDS: MONISTAT-7 VAG CREAM VAG SCH (20:37)
[2019-12-07] MEDS: CARDIZEM PO SCH ×2 (01:56→08:27)
[2019-12-07] MEDS: HUMALOG SUBQ SCH ×2 (06:37→11:35)
[2019-12-07] MEDS: SYNTHROID PO SCH (06:37)
[2019-12-07 07:09] LABS: CALCIUM 9.2 mg/dL (8.8-10.2); CREATININE 1.1 mg/dL (0.5-0.9); MAGNESIUM 2.1 mg/dL (1.5-2.7); POTASSIUM 4.1 mmol/L (3.5-5.1)
[2019-12-07 08:08] VITALS: BP 163/85
[2019-12-07] MEDS: ELIQUIS PO SCH (08:26)
[2019-12-07] MEDS: SINGULAIR PO SCH (08:26)
[2019-12-07] MEDS: COLACE PO SCH (08:26)
[2019-12-07] MEDS: LOPID PO SCH (08:27)
[2019-12-07] MEDS: BETAPACE PO SCH (08:27)
[2019-12-07] MEDS: ASPIRIN PO SCH (08:27)
[2019-12-07] MEDS: ALDACTONE PO SCH (08:27)
[2019-12-07] MEDS: CENTRUM SILVER PO SCH (08:27)
[2019-12-07] MEDS: MIRALAX PO SCH (08:27)
[2019-12-07] MEDS: FLONASE NAS SCH (08:27)
[2019-12-07] MEDS: ASTELIN NASAL SPRAY NAS SCH (08:27)
[2019-12-07] MEDS: VITAMIN E PO SCH (08:27)
[2019-12-07] MEDS ORDERED: ZOFRAN IV ONE (10:35)
--- NOTE | 2019-12-07 13:22 | DISCHARGE SUMMARY ---
ADMISSION DATE: 12/03/2019 DISCHARGE DATE: 12/07/2019 ADMISSION DIAGNOSES: 1. Increasing dyspnea. 2. Atrial fibrillation with rapid ventricular response. 3. Morbid obesity with a body mass index of 49.8. 4. Sleep apnea syndrome, untreated due to patient's noncompliance. 5. Hypertension. 6. Hyperlipidemia. 7. History of congestive heart failure with preserved ejection fraction. DISCHARGE DIAGNOSES: 1. Morbid obesity. 2. Sleep apnea. 3. Hypertension. 4. Diastolic congestive heart failure. 5. Atrial fibrillation with rapid ventricular response, rate now controlled. 6. Diabetes mellitus. 7. Acute on chronic kidney disease. CONSULTANTS: Dr. Garcia, Cardiology. DIAGNOSTICS: 1. Chest x-ray revealed stable chest. Lungs are well expanded. Right hemidiaphragm is elevated similar to prior exams. Heart is mildly prominent. Vessels are not distended. There are no infiltrates. 2. Echocardiogram revealed an ejection fraction of 55%. Normal LV systolic function. 3. Transesophageal echocardiogram on 12/06/2019 revealed no evidence of thrombus 4. On 12/06/2019, direct current cardioversion with 120 joules. The patient cardioverted to sinus rhythm with PACs. MICROBIOLOGY: 1. Blood cultures x2 revealed no growth after 48 hours. 2. Urine culture revealed no growth. HOSPITAL COURSE: Ms. Hurst presented to the emergency room complaining of shortness of breath and increasing lower extremity edema. She was found to be in atrial fibrillation with rapid ventricular response. She was initially started on a Cardizem drip. She had been transitioned to Cardizem orally. This was discontinued and she was started on Betapace per Cardiology. She has remained in sinus rhythm since DC cardioversion. She was diuresed for an accumulative negative balance of 644 mL. She was found to be hypothyroid with an elevated TSH and a low T4. She was started on levothyroxine at 75 mcg, and she has been instructed to check with her primary care physician as she will need another TSH level in 6 weeks for dose adjustments. She did voice understanding and being instructed this per Dr. Gould, as well as myself. She states that she carries a diagnosis of sleep apnea, stating that she had a sleep study done about 10 years ago, although she did not complete it as she was able to tolerate mask and, up until now, she has refused to undergo another sleep study. Myself, as well as Dr. Gould and Dr. Garcia, did discuss with the patient the importance of having another sleep study. We did discuss the role of sleep apnea with atrial fibrillation, as well as the fact that they have different masks now which she may be able to tolerate. She does carry a diagnosis of chronic kidney disease with a baseline creatinine being around 1.1 according to her past, which she may be able to tolerate. She did voice understanding on this. Today she denies any shortness of breath, stating that she feels much better after cardioversion. Thankfully she is ready for discharge. DISCHARGE VITAL SIGNS: Blood pressure is 163/85 with a heart rate of 61, respirations are 20 to 21, temperature is 97.7 degrees orally. Room air saturations 96 to 98 percent. DISCHARGE PHYSICAL EXAMINATION: Cardiovascular: Regular rate and rhythm. S1 and S2 are appreciated. No murmur. Pulmonary: Breath sounds are clear. No increased work of breathing noted. Chest rises and falls symmetrically with respiration. Gastrointestinal: Abdomen is soft, nontender, nondistended with bowel sounds in all 4 quadrants. Neurologic: She is alert and oriented. DISCHARGE MEDICATIONS: 1. Torsemide 20 mg p.o. daily. 2. Spironolactone 25 mg p.o. b.i.d. 3. Sotalol 80 mg p.o. b.i.d. 4. MiraLAX 17 g p.o. daily. 5. Procardia XL 60 mg p.o. daily. 6. Lisinopril 40 mg p.o. daily. 7. Levothyroxine 75 mcg p.o. daily. 8. Glucovance 2.5/500 one p.o. b.i.d. 9. Gabapentin 300 mg p.o. b.i.d. 10. Climara patch q. 7 days as directed. 11. Eliquis 5 mg p.o. b.i.d. 12. ProAir inhaler 4 times a day. 13. Vitamin E 400 units daily. 14. Dymista nasal spray, 1 spray in each nostril b.i.d. 15. Lipitor 40 mg p.o. at bedtime. 16. Aspirin 81 mg p.o. daily FOLLOWUP: 1. Dr. Lynch, her primary care physician. She needs to call the office to schedule visit within 1 week. She will need a TSH drawn in 6 weeks. she will need to schedule this with Dr. Lynch also. 2. Dr. Tapia, her bone worker. She needs to follow up at her appointment that is scheduled within the next few weeks. 3. She has been instructed to call to be seen sooner or return to the ER for any syncope, dizziness, chest pain, palpitations, increasing shortness of breath, productive cough, temperature greater than 101, any increasing lower extremity edema, any nausea, vomiting, diarrhea, constipation, black or bloody vomitus or stools, any hematuria, gums bleeding, nose bleeding, any bruising or for any questions or concerns that she may have. She is being discharged home in stable condition with family members. TIME SPENT: This is a greater than 30 minute discharge. Dictated by TAMERA Larson for Guillaume Goyal MD cc: TAMERA Larson MD Michael C. Donham, MD
--- NOTE | 2019-12-09 08:40 | CARDIAC CATH REPORT ---
DATE: 12/06/2019 PROCEDURE: Direct current cardioversion. INDICATION: Persistent atrial fibrillation. DESCRIPTION: The patient was brought to the cardiac medical laboratory manager and a JACE was carried out first to rule out thrombus. Once the JACE was completed and no thrombus was noted, she was deemed to be safe for cardioversion. The pads were positioned in anterior and posterior location. She received first a single synchronized countershock to the chest cage consisting of 120 britton per second. That resulted in no changes in the rhythm. Then we performed a second jolt with 150 britton per second using the biphasic system that resulted in conversion from atrial fibrillation into sinus rhythm with PACs. The patient gradually woke up from the effects of the anesthesia and no deficits were noted. SUMMARY: This was a successful cardioversion from atrial fibrillation into sinus rhythm with PACs. RECOMMENDATION: The patient will be kept on low-dose Cardizem plus atorvastatin. She will also be kept on Eliquis. She will follow with DR. Nando Tapia, who is her regular financial controller. cc: Ashvin Garcia MD
--- NOTE | 2019-12-09 09:18 | CARDIAC CATH REPORT ---
DATE: 12/09/2019 PROCEDURE PERFORMED: Cardioversion. INDICATION: Persistent atrial fibrillation. DESCRIPTION OF PROCEDURE: The patient came into the cardiac prosthetics lab technician on 12/06/2019 in the fasting state. The patient had been consented. The patient first received a transesophageal echocardiogram under the effects of IV propofol under the anesthesia services of Dr. Vaca and DISPATCHER REFINERY, Inder García. Once the transesophageal echocardiogram was completed and there was no evidence of thrombus, then cardioversion was deemed to be safe. The pads were positioned in the anterior posterior location. First, we delivered 120 britton per second using the biphasic system. This resulted in no change in rhythm. Then a second countershock to the chest cage consisting of 150 britton per second was delivered. At this time, the patient converted from atrial fibrillation into normal sinus rhythm with PAC's. She woke up from the affects of anesthesia without deficits. SUMMARY: This was a successful cardioversion from atrial fibrillation into normal sinus rhythm. RECOMMENDATIONS: The patient is going to be maintained on sotalol 80 mg twice a day, low dose Cardizem, and she will be discharged. She will follow up with Dr. Nando Tapia, with her established armhole baster jumpbasting. cc: Ashvin Garcia MD MTDD
== END 2019-12-07 11:53 | disposition home or self-care (01) | DRG 308 ==
LOC: ED 09:46 → SUATTDRO 14:49 → 2N 14:49
PROVIDERS: ATTEND Internal Medicine